=== PATIENT | male | born 1990 | race Caucasian/White ===

== ENCOUNTER 2022-12-06 19:03 | Inpatient (IN) | payer OTHER, SELFPAY ==
[2022-12-06 19:04] VITALS: BP 136/86; PULSE 139; RESP 16; TEMP 36; O2SAT 99; BMI 32.8
--- NOTE | 2022-12-06 20:13 | EKG12_ITS ---
Test Reason : Blood Pressure : / mmHG Vent. Rate : 100 BPM Atrial Rate : 100 BPM P-R Int : 158 ms QRS Dur : 098 ms QT Int : 372 ms P-R-T Axes : 060 029 029 degrees QTc Int : 479 ms Normal sinus rhythm Normal ECG Confirmed by ALEKS FREIRE, CAROLA ([id number]), editor farm journal MILENA RECINOS ([id number]) on 12/10/2022 12:31:27 PM Referred By: PHOEBE Confirmed By:TAMIKO FINK MD
[2022-12-06] MEDS: Phenobarbital 32.4 MG Tablet 97.2 MG PO (20:36)
[2022-12-06] MEDS: LORazepam 2 MG/ML Syringe IV (20:36)
[2022-12-06 20:46] LABS: Absolute Lymphocyte Count 6.46 X10^3/uL (0.83-4.51); Absolute Neutrophil Count 2.7 X10^3/uL (2.0-7.7); Basophil# 0.09 X10^3/uL; Basophil% 0.9 % (0-1); Hemoglobin 14.3 g/dL (13.0-16.5); Lymphocyte # 6.46 X10^3/ul (0.83-4.51); Lymphocyte % 64.7 % (19-41); Mean Corpuscular Hgb 31.4 pg (27.0-32.0); Mean Corpuscular Volume 92.1 fL (80-94); Mean Platelet Vol. 10.3 fl (6.2-12.0); Monocyte# 0.62 X10^3/uL; Monocyte% 6.2 % (0-10); NRBC Flagged by Analyzer 0.5 % (0-5); Neutrophil # 2.68 X10^3/uL (2.7-7.7); Neutrophil % 26.9 % (47-70); POSITIVE DIFFERENTIAL YES; Platelet Count 273 K/mm3 (150-450); RBC Distribution Width CV 12.1 % (11.6-14.6); RBC Distribution Width SD 41.1 fl (35.1-43.9); Red Blood Count 4.56 M/mm3 (4.6-6.2)
[2022-12-06] MEDS: 0.9% Normal Saline (1000mL) 1,000 ML 999 ML IV (20:48)
[2022-12-06 20:52] LABS: Differential Indicated SCAN CRITERIA MET
[2022-12-06 21:06] LABS: ALB/GLOB Ratio 1.2 RATIO (0.9-2.4); AST(SGOT) 65 U/L (15-37); Alanine Aminotransfer ALT/SGPT 60 U/L (16-61); Albumin, Serum 4.2 g/dL (3.2-5.0); Alkaline Phosphatase 91 U/L (45-117); Anion Gap 11 (5-15); BUN 4 mg/dL (7-18); BUN/Creat Ratio 5.7 RATIO (10-20); Calcium,Total 8.8 mg/dL (8.5-10.1); Chloride 103 mmol/L (98-107); EST Glomerular Filtration Rate 138 mL/min (>60); Est Glom Filt Rate - Afr Amer 167 mL/min (>60); Estimated Creatinine Clearance 162.85 ml/min; Globulin 3.5 g/dL (2.2-4.2); Glucose 101 mg/dL (74-106); Potassium 3.6 mmol/L (3.5-5.1); Protein, Total 7.7 g/dL (6.4-8.2); Sodium Level 141 mmol/L (136-145); Troponin-I HS 3 pg/mL (3.0-78.0)
[2022-12-06 21:08] VITALS: PULSE 87; RESP 16; O2SAT 99
[2022-12-06 21:11] LABS: Amphetamine Urine VISTA NEGATIVE (<1000 ng/mL); Barbiturate Urine VISTA NEGATIVE (< 200 ng/mL); Benzodiazepine Urine VISTA NEGATIVE (< 200 ng/mL); Cocaine Urine VISTA NEGATIVE (< 300 ng/mL); Ecstacy Urine VISTA NEGATIVE (< 500 ng/mL); Methadone Urine VISTA NEGATIVE (< 300 ng/mL); PCP Urine VISTA NEGATIVE (< 25 ng/mL); THC Urine VISTA NEGATIVE (< 50 ng/mL); Vista UDS pH Range 7
[2022-12-06 21:22] LABS: Differential Comment SCANNED
--- NOTE | 2022-12-06 21:46 | ED.RN ---
Plan of care agreement verbal gone over with the patient. Patient voice verbal consent to undergoing medical detox. Patient unable to sign.
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
[2022-12-06] MEDS: LORazepam 2 MG/ML Syringe 1 MG IV (22:22)
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
[2022-12-06 23:00] VITALS: BP 133/87; PULSE 110; RESP 16; TEMP 37.1; O2SAT 99
[2022-12-06 23:01] VITALS: BMI 32.8
[2022-12-06] MEDS: Acetaminophen 500 MG Tablet PO (23:15)
[2022-12-06] MEDS: hydrOXYzine PAM 25 MG Capsule 50 MG PO (23:15)
[2022-12-06] MEDS: Lactated Ringers 1,000 ML 125 ML IV (23:16)
[2022-12-06] MEDS: traZODone 100 MG Tablet PO (23:16)
[2022-12-06 23:22] LABS: Prothrombin Time (Protime)PT. 13.3 SECONDS (11.7-14.9)
[2022-12-07] VITALS (8 sets, daily range): BP systolic 108–139; BP diastolic 69–107; PULSE 93–110; RESP 14–18; TEMP 36.3–37.1; O2SAT 95–98
[2022-12-07] MEDS: Phenobarbital 32.4 MG Tablet 64.8 MG PO ×6 (00:41→19:52)
[2022-12-07] MEDS: hydrOXYzine PAM 25 MG Capsule 50 MG PO ×2 (04:40→21:41)
[2022-12-07] MEDS: Acetaminophen 500 MG Tablet PO (04:41)
[2022-12-07] MEDS: Folic Acid 1 MG Tablet PO ×2 (07:48→11:06)
[2022-12-07] MEDS: traZODone 100 MG Tablet PO ×2 (07:48→20:04)
[2022-12-07] MEDS: Pantoprazole Sodium 40 MG Tablet PO (07:49)
--- NOTE | 2022-12-07 10:10 | PN.HOSP_ITS ---
Reason for Visit Reason for Visit: Diagnoses Alcohol use, unspecified with withdrawal delirium (12/06/22) Subjective Subjective Patient was seen and examined today, he was admitted for alcohol detox yesterday, he states at 1 time during previous detox he had a seizure, this was many years ago. Patient denies any illicit drug usage, he states he drinks primarily beer as many as 12/day. Objective Data Objective Data Vital Signs: Vital Signs Temp Pulse Resp BP Pulse Ox O2 Del Method 98.4 F 110 H 16 114/69 96 Room Air 12/07/22 04:30 12/07/22 04:30 12/07/22 04:30 12/07/22 04:30 12/07/22 04:30 12/07/22 04:30 Oxygen Delivery Method Room Air Weight: 106.6 kg Body Mass Index (BMI) 32.8 Intake & Output: Intake and Output for Last 24 Hours 12/05/22 12/06/22 12/07/22 23:59 23:59 23:59 Intake Total 1000 / 1040 1040 / 1040 Output Total 0 / 0 Balance 1000 / 1040 1040 / 1040 Lab / Micro Data 12/06/22 20:41 12/06/22 20:41 Labs: Laboratory Results - last 24 hr 12/06/22 20:41: WBC 10.0, RBC 4.56 L, Hgb 14.3, Hct 42.0, MCV 92.1, MCH 31.4, MCHC 34.0, RDW Std Deviation 41.1, RDW Coeff of [place] 12.1, Plt Count 273, MPV 10.3, Immature Gran % (Auto) 0.300, Neut % (Auto) 26.9 L, Lymph % (Auto) 64.7 H, [place] % (Auto) 6.2, Eos % (Auto) 1.0, Baso % (Auto) 0.9, Absolute Neuts (auto) 2.7, Absolute Lymphs (auto) 6.46 H, Nucleated RBC % 0.5, Differential Comment SCANNED, Sodium 141, Potassium 3.6, Chloride 103, Carbon Dioxide 27.0, Anion Gap 11, BUN 4 L, Creatinine 0.70, Estim Creat Clear Calc 162.85, Est GFR (MDRD) Af Amer 167, Est GFR (MDRD) Non-Af 138, BUN/Creatinine Ratio 5.7 L, Glucose 101, Calcium 8.8, Total Bilirubin 0.50, AST 65 H, ALT 60, Alkaline Phosphatase 91, Troponin I High Sens 3, Total Protein 7.7, Albumin 4.2, Globulin 3.5, Albumin/Globulin Ratio 1.2, Ethyl Alcohol 366.0 H* 12/06/22 20:52: Urine Opiates Screen NEGATIVE, Urine Methadone Screen NEGATIVE, Ur Barbiturates Screen NEGATIVE, Ur Phencyclidine Scrn NEGATIVE, Ur Amphetamines Screen NEGATIVE, MDMA (Ecstasy) Screen NEGATIVE, U Benzodiazepines Scrn NEGATIVE, Urine Cocaine Screen NEGATIVE, U Cannabinoids Screen NEGATIVE, Ur Drug Screen Comment 12/06/22 23:00: PT 13.3, INR 1.0 Physical Exam Const alert, oriented x3, no apparent distress and healthy appearing General Appearance: cooperative, well kempt and well developed Orientation / Consciousness: awake, oriented to person, oriented to place and oriented to time HEENT normocephalic, head/scalp atraumatic and moist oral mucous membranes Eyes PERRL, EOMs intact bilaterally and conjunctivae normal Neck supple, no JVD, thyroid normal and no carotid bruits General: trachea midline Resp normal respiratory effort, no retractions, no use of accessory muscles and clear to auscultation bilaterally Auscultation: Negative for rales, rhonchi or wheezes Cardio regular rate, regular rhythm, S1 normal heart sound, S2 normal heart sound, no murmurs, no rub and no gallops GI normal to inspection, nondistended, normoactive bowel sounds, soft to palpation, non-tender and non-distended Neuro oriented x3, CN's II-XII intact bilaterally, moves all extremities, no focal motor deficits and no sensory deficits noted Sensorium / Orientation: awake, alert, oriented to person, oriented to place and oriented to time Speech: speech normal Psych affect normal Assessment & Plan Assessment/Plan (1) Alcohol withdrawal: PLAN: Plan 1. Acute alcohol withdrawal with no signs of DTs at this time-continue on present medications including phenobarb taper, patient will be seen by addiction health care social worker #2 chronic alcoholism-again patient will be seen by addiction health care social worker, remain on present medications, complicates care, medical course, recovery, and prognosis Total clinical time spent by myself addressing the patient's medical issues, reviewing all of his data, and collaborating with patient's care team: 25 minutes Charges/Coding Visit Charges Inpatient E&M: 96829 Subs Hosp L1
[2022-12-07] MEDS: Gabapentin 300 MG Capsule PO ×2 (11:06→21:41)
[2022-12-07] MEDS: LORazepam 2 MG/ML Syringe IV ×4 (12:23→18:57)
[2022-12-07] MEDS: 0.9% Saline Lock 10 ML Syringe IV ×4 (12:24→18:57)
[2022-12-07] MEDS: Thiamine Hydrochloride 100 MG Tablet PO (12:25)
[2022-12-08] VITALS (9 sets, daily range): BP systolic 133–144; BP diastolic 92–113; PULSE 70–98; RESP 14–16; TEMP 36.4–37.1; O2SAT 94–97
[2022-12-08] MEDS: Phenobarbital 32.4 MG Tablet 64.8 MG PO ×6 (00:03→20:16)
--- NOTE | 2022-12-08 07:42 | PCM.PN.HOSP ---
Reason for Visit Reason for Visit: Diagnoses Alcohol use, unspecified with withdrawal delirium (12/06/22) Alcohol use, unspecified with withdrawal, unspecified (12/06/22) Subjective Subjective Patient was seen and examined today, he does not complain of any anxiety or tremors. Objective Data Objective Data Vital Signs: Vital Signs Temp Pulse Resp BP Pulse Ox O2 Del Method 97.6 F L 70 14 141/113 H 96 Room Air 12/08/22 04:00 12/08/22 04:00 12/08/22 04:00 12/08/22 04:00 12/08/22 04:00 12/08/22 04:00 Oxygen Delivery Method Room Air Weight: 106.6 kg Body Mass Index (BMI) 32.8 Intake & Output: Intake and Output for Last 24 Hours 12/06/22 12/07/22 12/08/22 23:59 23:59 23:59 Intake Total 1000 / 1040 1939 Output Total 0 / 0 Balance 1000 / 1040 1939 / 1939 Lab / Micro Data 12/06/22 20:41 12/06/22 20:41 Physical Exam Const alert, oriented x3, no apparent distress and healthy appearing General Appearance: cooperative, well kempt and well developed Orientation / Consciousness: awake, oriented to person, oriented to place and oriented to time HEENT normocephalic and moist oral mucous membranes Eyes PERRL, EOMs intact bilaterally and conjunctivae normal Neck supple, no JVD, thyroid normal and no carotid bruits General: trachea midline Resp normal respiratory effort and clear to auscultation bilaterally Auscultation: Negative for rales, rhonchi or wheezes Cardio regular rate, regular rhythm, no murmurs, no rub and no gallops GI normal to inspection, nondistended, normoactive bowel sounds, soft to palpation, non-tender and non-distended Extremity no clubbing, cyanosis or edema Skin no rashes or lesions noted General Skin Exam: no breakdown Neuro oriented x3, CN's II-XII intact bilaterally, no focal motor deficits and no sensory deficits noted Sensorium / Orientation: awake and alert Speech: speech normal Psych affect normal Assessment & Plan Assessment/Plan (1) Alcohol withdrawal: PLAN: Plan 1. Acute alcohol withdrawal with no signs of DTs at this time-continue on present medications including phenobarb taper, patient will be seen by addiction social services analyst and an outpatient plan will be formulated #2 chronic alcoholism-again patient will be seen by addiction social services analyst, remain on present medications, complicates care, medical course, recovery, and prognosis Total clinical time spent by myself addressing the patient's medical issues, reviewing all of his data, and collaborating with patient's care team: 25 minutes Charges/Coding Visit Charges Inpatient E&M: 77354 Subs Hosp L1
[2022-12-08] MEDS: Folic Acid 1 MG Tablet PO (09:19)
[2022-12-08] MEDS: Pantoprazole Sodium 40 MG Tablet PO (09:20)
[2022-12-08] MEDS: LORazepam 1 MG Tablet 2 MG PO ×4 (09:26→20:15)
[2022-12-08] MEDS: hydrOXYzine PAM 25 MG Capsule 50 MG PO ×2 (15:04→22:04)
[2022-12-08] MEDS: Gabapentin 300 MG Capsule PO (22:04)
[2022-12-09] MEDS: Phenobarbital 32.4 MG Tablet 64.8 MG PO ×3 (00:35→14:13)
[2022-12-09] MEDS: LORazepam 1 MG Tablet 2 MG PO ×5 (00:35→17:29)
[2022-12-09 02:00] VITALS: BP 128/89; PULSE 87; RESP 18; TEMP 37.1; O2SAT 96
[2022-12-09 08:00] VITALS: BP 132/102; PULSE 84; RESP 18; TEMP 36.4; O2SAT 97
[2022-12-09] MEDS: Folic Acid 1 MG Tablet PO (08:39)
[2022-12-09] MEDS: Pantoprazole Sodium 40 MG Tablet PO (08:40)
[2022-12-09] MEDS: Thiamine Hydrochloride 100 MG Tablet PO (08:40)
[2022-12-09] MEDS: hydrOXYzine PAM 25 MG Capsule 50 MG PO (11:39)
--- NOTE | 2022-12-09 11:40 | ADDICTION ---
This food writer met with PT to conduct ASAM, MSE, AUDIT, DUDIT assessments and to plan for d/c. PT A+Ox4 and participated actively. All assessments completed and placed in PT's chart. PT plans to f/u with follow-up [facility] [place] outpatient treatment services as well as would like the Vivitrol injection at discharge. He has been approved for the Vivitrol. PT did not indicate a need for transportation post d/c from [facility].
[2022-12-09 12:00] VITALS: BP 148/102; PULSE 97; RESP 18; O2SAT 97
[2022-12-09 12:12] VITALS: BP 141/102; PULSE 84; RESP 18; TEMP 36.4; O2SAT 97
--- NOTE | 2022-12-09 12:12 | DCINST_ITS ---
Discharge Instructions Diet Discharge Diet: No restrictions Activity Discharge Activity: Return to Normal Activity Dressing / Incision Call your doctor if you observe: Fever of 101 or Higher, Shortness of breath, Dizziness, Fainting spells, Swelling in the ankles, Chest pain and Increased palpitations (irregular heartbeat) Follow Up Care Test Results: Test results from this visit will be discussed in further detail at your follow- up appointment, if applicable. Discharge Plan Admission Admit Date/Time: 12/06/22 22:47 Attending Provider: Ascencion Landin Primary Care Provider: Aishwarya Donnelly Consulting Providers: Braeden Stauffer Mark Discharge Orders/Prescriptions Prescriptions: No Action NK Referrals / Follow Up: Aishwarya Donnelly MD [Primary Care Provider] - NOT,DEFINED [Non-Staff] - Disposition Disposition (needs filled in before D/C Order can be placed): Home, Self Care
[2022-12-09 14:00] VITALS: PULSE 97
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
[2022-12-09] MEDS: Naltrexone Microspheres 380 MG SYRINGE IM (18:25)
[2022-12-09] MEDS: Vivitrol Administration Needles 1 EACH MC (18:26)
[2022-12-09] MEDS: Vivitrol ID Card 1 EACH MC (18:29)
== END 2022-12-09 19:30 | disposition home or self-care (01) | DRG 897 ==
LOC: ED 20:33 → ICU 12-07 00:15
PROVIDERS: Admitting Provider Internal Medicine; Emergency Provider Student in an Organized Health Care Education/Training Program; PCP Family Medicine; Visit Provider Family Medicine
DX: F10.229 Alcohol dependence with intoxication, unspecified (principal); G35 Multiple sclerosis; F10.231 Alcohol dependence with withdrawal delirium; F17.290 Nicotine dependence, other tobacco product, uncomplicated; T21.05XD Burn of unspecified degree of buttock, subsequent encounter; Y90.8 Blood alcohol level of 240 mg/100 ml or more
CPT/HCPCS: 80053; 80307; 82077; 84484; 85025; 85610; 93005; 97802; 99281; 99406; J7030; J7120; A4216